=== PATIENT | male | born 1960 | race Caucasian/White ===

== ENCOUNTER 2017-12-10 17:56 | Emergency (ER) | payer BC ==
[~2017-12-10] VITALS: Ht 188 cm; Wt 124.0 kg
[~2017-12-10 17:56] MED LIST: ALPRAZOLAM2 M1 PO; PHENERGAN25 MG/TAB PO; PREVACID30 M3 PO
[2017-12-10 18:43] LABS: HEMOGLOBIN 15.7 g/dl (14.0-18.0); IMMATURE GRANULOCYTES 0.2 % (0.0-5.0); MEAN CELL VOLUME 92.7 fL CALC (80.0-100.0); MEAN CORPUSCULAR HGB 31.7 pG CALC (26.0-32.0); MEAN CORPUSCULAR HGB CONC 34.1 g/L CALC (32.0-36.0); RED BLOOD COUNT 4.96 mill/uL (4.70-6.10); RED CELL DISTRI WIDTH 13.1 % (11.5-15.5)
[2017-12-10 18:55] LABS: ACT PARTIAL THROMBO TIME 25.3 SECONDS (20.0-32.5); PROTHROMBIN TIME 10.8 SECONDS (9.0-12.5)
[2017-12-10 18:57] LABS: ALBUMIN 4.5 g/dL (3.2-5.0); ALKALINE PHOSPHATASE 44 u/l (38-126); AMYLASE 59 u/l (30-110); ANION GAP 13 (6-22 (CALC)); BILIRUBIN, TOTAL 1.2 mg/dL (0.0-1.4); BUN 18 mg/dL (9-20); BUN/CREATININE RATIO 20 (12-20 (CALC)); CARBON DIOXIDE 27 mmol/l (22-30); CHLORIDE 106 mmol/l (95-108); CREATININE 0.9 mg/dL (0.7-1.3); GFR > 60 ML/MIN (>=60 (CALC)); GFR FOR AFR.AMER. > 60 ML/MIN (>=60 (CALC)); LIPASE 65 u/l (23-300); POTASSIUM 3.9 mmol/l (3.5-5.1); SGOT/AST 20 u/l (17-59); SGPT/ALT 32 u/l (21-72); SODIUM 142 mmol/l (137-146); TOTAL PROTEIN 7.5 g/dL (6.3-8.2)
[2017-12-10] MEDS ORDERED: PROTONIX40 MG PO (21:14)
[2017-12-10 21:25] VITALS: BP 138/64
== END 2017-12-10 21:22 | disposition home or self-care (01) | DRG 379 ==
LOC: ED 17:56
PROVIDERS: Family Medicine
DX: K29.21 Alcoholic gastritis with bleeding (principal); Z87.11 Personal history of peptic ulcer disease
CPT/HCPCS: S0164

== ENCOUNTER 2017-12-31 07:01 | Day surgery (SDC) | payer BC ==
[~2017-12-31] VITALS: Ht 188 cm; Wt 124.7 kg
[~2017-12-31 07:01] MED LIST changes: +PROTONIX40 MG PO; +XALATAN 0.005%2.5 ML OU
[2017-12-31] MEDS ORDERED: PROTONIX20 M1 PO ×2 (09:08→09:10)
[2017-12-31 09:20] VITALS: BP 102/66
== END 2017-12-31 09:30 | disposition home or self-care (01) | DRG 379 ==
LOC: ENDO 07:01 → ORM 09:45
PROVIDERS: ATTEND Surgery
PROC: 0DJ08ZZ Inspection of Upper Intestinal Tract, Via Natural or Artificial Opening Endoscopic (ICD-10-PCS; principal; 2017-12-31)
PROC: 0DJD8ZZ Inspection of Lower Intestinal Tract, Via Natural or Artificial Opening Endoscopic (ICD-10-PCS; 2017-12-31)
DX: K29.71 Gastritis, unspecified, with bleeding (principal); K64.4 Residual hemorrhoidal skin tags; K64.8 Other hemorrhoids; K44.9 Diaphragmatic hernia without obstruction or gangrene; Z87.11 Personal history of peptic ulcer disease

== ENCOUNTER 2018-03-01 00:43 | Emergency (ER) | payer BC ==
[~2018-03-01] VITALS: Ht 188 cm; Wt 123.0 kg
[~2018-03-01 00:43] MED LIST changes: +PROTONIX20 M1 PO
[2018-03-01 01:40] LABS: HEMATOCRIT 45.2 % (39.0-50.0); HEMOGLOBIN 15.3 g/dl (14.0-18.0); IMMATURE GRANULOCYTES 0.3 % (0.0-5.0); MEAN CELL VOLUME 91.9 fL CALC (80.0-100.0); MEAN CORPUSCULAR HGB 31.1 pG CALC (26.0-32.0); MEAN CORPUSCULAR HGB CONC 33.8 g/L CALC (32.0-36.0); NEUT# 4.59 thou/uL (1.82-7.42); RED BLOOD COUNT 4.92 mill/uL (4.70-6.10); RED CELL DISTRI WIDTH 13.4 % (11.5-15.5); URINE BILIRUBIN - DIPSTICK NEGATIVE (NEGATIVE); URINE BLOOD DIPSTICK LARGE (NEGATIVE); URINE GLUCOSE - DIPSTICK NEGATIVE (NEGATIVE); URINE KETONE NEGATIVE (NEGATIVE); URINE LEUK ESTERASE NEGATIVE (NEGATIVE); URINE NITRITE - DIPSTICK NEGATIVE (Negative); URINE PH 5.5 (4.5-8.0); URINE PROTEIN - DIPSTICK 30 mg/dL (NEG-TRACE); URINE SPECIFIC GRAVITY >=1.030; URINE UROBILINOGEN - DIPSTICK 0.2 E.U./dL (0.2)
[2018-03-01 01:45] LABS: URINE CLARITY SL CLOUDY; URINE COLOR DK. YELLOW; URINE RBC 25-50 RBC/hpf (0-5)
[2018-03-01 01:58] LABS: ALBUMIN 4.4 g/dL (3.2-5.0); ALKALINE PHOSPHATASE 51 u/l (38-126); ANION GAP 15 (6-22 (CALC)); BILIRUBIN, TOTAL 0.9 mg/dL (0.0-1.4); BUN 26 mg/dL (9-20); BUN/CREATININE RATIO 27 (12-20 (CALC)); CARBON DIOXIDE 27 mmol/l (22-30); CHLORIDE 104 mmol/l (95-108); GFR > 60 ML/MIN (>=60 (CALC)); GFR FOR AFR.AMER. > 60 ML/MIN (>=60 (CALC)); SGOT/AST 30 u/l (17-59); SODIUM 141 mmol/l (137-146); TOTAL PROTEIN 7.4 g/dL (6.3-8.2)
[2018-03-01 01:59] LABS: POTASSIUM 4.7 mmol/l (3.5-5.1)
[2018-03-01 03:38] VITALS: BP 143/75
== END 2018-03-01 03:36 | disposition home or self-care (01) | DRG 392 ==
LOC: ED 00:43
PROVIDERS: Emergency Medicine
DX: R10.9 Unspecified abdominal pain (principal); N28.1 Cyst of kidney, acquired; R31.9 Hematuria, unspecified

== ENCOUNTER 2019-05-26 | Emergency (ER) | payer BC ==
[2019-05-26 08:49] LABS: HEMATOCRIT 43.1 % (39.0-50.0); HEMOGLOBIN 14.5 g/dl (14.0-18.0); IMMATURE GRANULOCYTES 0.3 % (0.0-5.0); MEAN CELL VOLUME 93.7 fL CALC (80.0-100.0); MEAN CORPUSCULAR HGB 31.5 pG CALC (26.0-32.0); MEAN CORPUSCULAR HGB CONC 33.6 g/L CALC (32.0-36.0); NEUT# 3.48 thou/uL (1.82-7.42); RED BLOOD COUNT 4.6 mill/uL (4.70-6.10)
[2019-05-26 08:53] LABS: URINE BILIRUBIN - DIPSTICK NEGATIVE (NEGATIVE); URINE BLOOD DIPSTICK LARGE (NEGATIVE); URINE COLOR YELLOW; URINE GLUCOSE - DIPSTICK NEGATIVE (NEGATIVE); URINE KETONE NEGATIVE (NEGATIVE); URINE LEUK ESTERASE NEGATIVE (NEGATIVE); URINE NITRITE - DIPSTICK NEGATIVE (Negative); URINE PROTEIN - DIPSTICK 30 mg/dL (NEG-TRACE); URINE SPECIFIC GRAVITY >=1.030; URINE UROBILINOGEN - DIPSTICK 0.2 E.U./dL (0.2)
[2019-05-26 08:58] LABS: URINE RBC >100 RBC/hpf (0-5)
[2019-05-26 09:02] LABS: ALBUMIN 4.4 g/dL (3.2-5.0); ALKALINE PHOSPHATASE 44 u/l (38-126); ANION GAP 15 (6-22 (CALC)); BILIRUBIN, TOTAL 0.9 mg/dL (0.0-1.4); BUN 24 mg/dL (9-20); BUN/CREATININE RATIO 29 (12-20 (CALC)); CARBON DIOXIDE 22 mmol/l (22-30); CHLORIDE 108 mmol/l (95-108); CREATININE 0.8 mg/dL (0.7-1.3); GFR > 60 ML/MIN (>=60 (CALC)); GFR FOR AFR.AMER. > 60 ML/MIN (>=60 (CALC)); LIPASE 72 u/l (23-300); POTASSIUM 4.1 mmol/l (3.5-5.1); SGOT/AST 35 u/l (17-59); SODIUM 142 mmol/l (137-146); TOTAL PROTEIN 7.7 g/dL (6.3-8.2)
[2019-05-26] MEDS ORDERED: HYDROCO/APAP1 TA9 PO (10:27)
[2019-05-26] MEDS ORDERED: ZOFRAN4 MG/TAB PO ×3 (10:27→10:50)
== END 2019-05-26 10:55 | disposition home or self-care (01) | DRG 694 ==
DX: N23 Unspecified renal colic (principal); R31.29 Other microscopic hematuria

== ENCOUNTER 2020-03-11 14:38 | Emergency (ER) | payer BC ==
[~2020-03-11] VITALS: Ht 188 cm; Wt 97.0 kg
[~2020-03-11 14:38] MED LIST changes: +HYDROCO/APAP1 TA9 PO; +ZOFRAN4 MG/TAB PO
[2020-03-11] MEDS ORDERED: DICLOFENAC50 MG PO (16:53)
[2020-03-11] MEDS ORDERED: FLEXERIL5 M1 PO (16:53)
[2020-03-11 17:02] VITALS: BP 137/68
== END 2020-03-11 17:07 | disposition home or self-care (01) | DRG 563 ==
LOC: ED 14:38
DX: S39.012A Strain of muscle, fascia and tendon of lower back, initial encounter (principal); X58.XXXA Exposure to other specified factors, initial encounter; Z87.442 Personal history of urinary calculi

== ENCOUNTER 2020-06-19 08:24 | Emergency (ER) | payer BC ==
[~2020-06-19] VITALS: Ht 188 cm; Wt 97.0 kg
[~2020-06-19 08:24] MED LIST changes: +DICLOFENAC50 MG PO; +FLEXERIL5 M1 PO
[2020-06-19] MEDS ORDERED: IBUPROFEN600 MG PO (10:58)
[2020-06-19] MEDS ORDERED: FLEXERIL5 MG PO (10:58)
[2020-06-19] MEDS ORDERED: MEDDOSEPAK PO (10:58)
[2020-06-19] MEDS ORDERED: HYDROCO/APAP1 T10 PO (10:58)
[2020-06-19 11:05] VITALS: BP 144/89
== END 2020-06-19 11:05 | disposition home or self-care (01) | DRG 563 ==
LOC: ED 08:24
DX: S39.012A Strain of muscle, fascia and tendon of lower back, initial encounter (principal); X50.0XXA Overexertion from strenuous movement or load, initial encounter

== ENCOUNTER 2022-08-20 14:12 | Emergency (ER) | payer BC ==
[~2022-08-20] VITALS: Ht 188 cm; Wt 99.7 kg
[~2022-08-20 14:12] MED LIST changes: +FLEXERIL5 MG PO; +HYDROCO/APAP1 T10 PO; +IBUPROFEN600 MG PO; +MEDDOSEPAK PO
[2022-08-20 14:21] VITALS: BP 147/89
[2022-08-20 14:31] VITALS: BP 146/90
[2022-08-20 14:51] VITALS: BP 123/67
[2022-08-20 15:00] VITALS: BP 149/90
[2022-08-20 15:06] LABS: BASO% 0.4 % (0-3); EOS% 0.7 % (0-8); HEMATOCRIT 44.1 % (39.0-50.0); HEMOGLOBIN 14.4 g/dl (14.0-18.0); IMMATURE GRANULOCYTES 0.6 % (0.0-5.0); LYMPH% 12.9 % (15-41); MEAN CELL VOLUME 92.5 fL CALC (80.0-100.0); MEAN CORPUSCULAR HGB 30.2 pG CALC (26.0-32.0); MEAN CORPUSCULAR HGB CONC 32.7 g/dL CAL (32.0-36.0); MONO% 6.6 % (2-13); NEUT# 6.74 thou/uL (1.82-7.42); NEUT% 78.8 % (42-76); RED BLOOD COUNT 4.77 mill/uL (4.70-6.10); RED CELL DISTRI WIDTH 13.2 % (11.5-15.5)
[2022-08-20 15:15] VITALS: BP 135/72
[2022-08-20 15:17] LABS: ALBUMIN 4.1 g/dL (3.2-5.0); ALKALINE PHOSPHATASE 56 u/l (38-126); BUN 16 mg/dL (8-23); BUN/CREATININE RATIO 20 (12-20 (CALC)); CHLORIDE 105 mmol/l (95-108); CREATININE 0.8 mg/dL (0.7-1.3); GFR FOR AFR.AMER. > 60 ML/MIN (>=60 (CALC)); GFR OTHER RACES > 60 ML/MIN (>=60 (CALC)); LIPASE 47 u/l (23-300); POTASSIUM 4.4 mmol/l (3.5-5.1); SGOT/AST 34 u/l (19-48); SODIUM 140 mmol/l (137-146); TOTAL PROTEIN 7.2 g/dL (6.3-8.2)
[2022-08-20 15:18] LABS: ANION GAP 11 (6-22 (CALC)); CARBON DIOXIDE 28 mmol/l (22-30)
[2022-08-20 16:22] LABS: URINE BILIRUBIN - DIPSTICK NEGATIVE (NEGATIVE); URINE BLOOD DIPSTICK NEGATIVE (NEGATIVE); URINE COLOR YELLOW; URINE GLUCOSE - DIPSTICK NEGATIVE (NEGATIVE); URINE KETONE 15 mg/dL (NEGATIVE); URINE LEUK ESTERASE NEGATIVE (NEGATIVE); URINE PROTEIN - DIPSTICK NEGATIVE (NEG-TRACE); URINE SPECIFIC GRAVITY 1.015; URINE UROBILINOGEN - DIPSTICK 0.2 E.U./dL (0.2)
[2022-08-20 16:26] LABS: URINE NITRITE - DIPSTICK NEGATIVE (Negative)
[2022-08-20] MEDS ORDERED: PROTONIX40 M2 PO (17:07)
[2022-08-20 17:16] VITALS: BP 135/72
== END 2022-08-20 17:35 | disposition home or self-care (01) | DRG 392 ==
LOC: ED 14:12
PROVIDERS: Family Medicine
DX: R10.13 Epigastric pain (principal); R91.8 Other nonspecific abnormal finding of lung field; Z87.442 Personal history of urinary calculi
CPT/HCPCS: Q9967